=== PATIENT | female | born 1960 | race Caucasian/White ===

== ENCOUNTER 2016-08-16 17:21 | Emergency (ER) | payer BC ==
[2016-08-16 17:29] VITALS: BP 122/81
--- NOTE | 2016-08-16 17:35 | UC ---
Complaint Female HPI - HPI Summary HPI Summary: 56 YEAR OLD FEMALE PRESENTS WITH COMPLAINS OF DYSURIA, URINE FREQUENCY, AND URGENCY. - History Of Current Complaint Chief Complaint: UCGU Stated Complaint: URINARY Time Seen by Provider: 08/16/16 17:33 Hx Last Menstrual Period: 08/08/16 - Allergies/Home Medications Allergies/Adverse Reactions: Allergies Allergy/AdvReac Type Severity Reaction Status Date / Time No Known Allergies Allergy Verified 08/16/16 17:29 Home Medications: Home Medications Cholecalciferol [Vitamin D] 1,000 unit PO DAILY 08/16/16 [History Confirmed 06/28] PMH/Surg Hx/FS Hx/Imm Hx - Surgical History Surgical History: Yes Surgery Procedure, Year, and Place: Herniated disc repair 2001 - Social History Alcohol Use: Occasionally Substance Use Type: None Smoking Status (MU): Never Smoked Tobacco Review of Systems Constitutional: Negative Skin: Negative Eyes: Negative ENT: Negative Respiratory: Negative Cardiovascular: Negative Gastrointestinal: Negative Genitourinary: Dysuria, Frequency, Urgency Motor: Negative Neurovascular: Negative Musculoskeletal: Negative Neurological: Negative Psychological: Negative All Other Systems Reviewed And Are Negative: Yes Physical Exam Triage Information Reviewed: Yes Vital Signs: Initial Vital Signs Temp 37.9 C 08/16/16 17:25 Pulse 85 08/16/16 17:25 Resp 14 08/16/16 17:25 BP 122/81 08/16/16 17:25 Pulse Ox 98 08/16/16 17:25 Eye Exam: Normal ENT Exam: Normal Dental Exam: Normal Neck exam: Normal Neck: Positive: 1 Respiratory Exam: Normal Cardiovascular Exam: Normal Abdominal Exam: Normal Musculoskeletal Exam: Normal Neurological Exam: Normal Psychological Exam: Normal Skin Exam: Normal Complaint Female Dx - Differential Dx/Diagnosis Provider Diagnoses: UTI Discharge - Discharge Plan Condition: Stable Disposition: HOME Prescriptions: Nitrofurantoin Monohyd Macro [Macrobid] 100 mg PO BID #14 cap Patient Education Materials: Urinary Tract Infection in Women (ED) Referrals: Bety Bolivar MD [Primary Care Provider] -
--- NOTE | 2016-08-19 07:47 | UC ---
Progress - Progress Note Progress Note: urine cx is neg. she should stop the nitrofurantoin
== END 2016-08-16 17:52 | disposition home or self-care (01) ==
LOC: UCCORT 17:21
DX: N39.0 Urinary tract infection, site not specified (principal)
CPT/HCPCS: 81003; 87086; 99212; G0463

== ENCOUNTER 2018-04-15 12:58 | Day surgery (SDC) | payer BC ==
--- NOTE | 2018-04-15 10:27 | HP ---
PREOPERATIVE HISTORY AND PHYSICAL: DATE OF ADMISSION/SURGERY: 04/15/18 DATE OF OFFICE VISIT/ENCOUNTER: 04/15/18 ATTENDING SURGEON: Lynsey Del Toro MD.* (DICTATED BY ERIK SY) PROCEDURE: Right small finger incision and drainage. CHIEF COMPLAINT: Postoperative infection, right small finger. HISTORY OF PRESENT ILLNESS: This is a 58-year-old female who underwent a right small finger DIP joint fusion with Dr. Del Toro on 03/22/18. Postoperatively initially she was doing well; however, after about 10 days after surgery, she noticed an increase in swelling, pain and erythema on the pad of the finger. Despite treatment with warm soapy water soaks twice daily and antibiotics, the symptoms have persisted. The patient has been noticing some light serous drainage from around the nail bed. After examination by Dr. Del Toro, she has consented to proceed with surgical intervention for the finger in the form of an incision and drainage. Otherwise, she has been feeling well and has been afebrile. PAST MEDICAL HISTORY: 1. Hypercholesterolemia. 2. GERD. PAST SURGICAL HISTORY: 1. Right small finger DIP joint fusion. 2. LEEP. 3. Anterior cervical diskectomy, fusion. 4. Tubal ligation. 5. Hand surgery involving the right pinky in the past. MEDICATIONS: 1. Atorvastatin calcium 10 mg daily. 2. CoQ10 maximum strength 400 mg daily. 3. Pantoprazole 40 mg daily. 4. Tums 500 mg 1 to 2 tabs p.r.n. 5. Vitamin D3 1000 units twice daily. 6. Ciprofloxacin 500 mg b.i.d. for current infection. ALLERGIES: No known drug allergies. FAMILY MEDICAL HISTORY: Uterine cancer, hypertension, stroke. 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 She denies tobacco use and recreational drug use. She drinks alcohol on occasion. REVIEW OF SYSTEMS: Negative for general, cephalic, cardiovascular, respiratory , GI, , other musculoskeletal, integumentary, endocrine, neurologic, and hematologic symptoms. Infectious disease is negative for history of MRSA, hepatitis C, HIV. PHYSICAL EXAMINATION GENERAL: Well-developed, well-nourished, 58-year-old female, in no acute distress. VITAL SIGNS: Height 5 feet 4 inches, weight 150 pounds. Pulse rate 62, blood pressure 108/70. HEENT: Normocephalic, atraumatic. Pupils are equal, round, and reactive to light and accommodation. Extraocular movements are intact. Throat is clear. NECK: Supple. No palpable lymph nodes. PULMONARY: Lungs are clear to auscultation bilaterally. No wheezes, rales, or rhonchi. CARDIOVASCULAR: Regular rate and rhythm. S1, S2. No murmurs, rubs, or gallops. No edema. ABDOMEN: Positive bowel sounds, soft, nontender. NEUROLOGICAL: Alert and oriented x3. Cranial nerves II through XII are intact. Sensation is intact to light touch. MUSCULOSKELETAL: On exam of her right pinky finger, there is some light erythema more on the pad of her finger than around the surgical incision. It is mildly swollen and tender to palpation. There is some light drainage. Nail is intact. IMPRESSION: Postoperative infection, right little finger after distal interphalangeal joint fusion. PLAN: The patient is scheduled to undergo a right small finger I and D with Dr. Del Toro on 04/15/18. We will see her back in the office later this week for followup. She will use [facility] for postoperative pain management and continue on the ciprofloxacin. Cultures are pending. ERIK SY [id number]/[facility] #: [id number] MTDClementine
[2018-04-15] MEDS ORDERED: Lidocaine 1% INJ* 10 MG/ML 30 ML SDV ONE (13:03)
[2018-04-15 14:34] VITALS: BP 116/66
--- NOTE | 2018-04-15 20:32 | OP ---
DATE OF OPERATION: 04/15/18 [facility] DATE OF : 62. SURGEON: Lynsey Del Toro MD SUPERVISOR [employer] PRODUCTION: ERIK [place] ANESTHESIA: Local. PRE-OP DIAGNOSIS: Postop wound infection with a paronychia of the right small finger. POST-OP DIAGNOSIS: Postop wound infection with a paronychia of the right small finger. OPERATIVE PROCEDURE: I and D of the right small finger. ESTIMATED BLOOD LOSS: Zero. INDICATION FOR PROCEDURE: Joyce is a 58-year-old female who had a DIP joint fusion of her right small finger about 2-1/2 weeks ago. Few days ago, she developed redness and swelling. She has failed conservative treatment with oral antibiotics. She has been on Keflex and Cipro. She had, in the office, an incision and drainage yesterday, but has persistent drainage, so presents now for operative I and D of the right small finger. DESCRIPTION OF PROCEDURE: The patient was brought to the operative room, was given a digital block anesthetic with 10 cc of 1% plain lidocaine. The skin of her right small finger and upper extremity was prepped and draped in the usual sterile fashion. No tourniquet was used. A tenotomy scissor was used to open up the distal incision and on the lateral aspect of the fingernail. The drainage was cultured with aerobic and anaerobic cultures. We then flushed the wound with a liter of saline with a 10 cc syringe. The fluid did not track at all proximal to the DIP joint and there is no dehiscence of the operative incision. The wound was dressed with Xeroform, 4x4, Kerlix, and Coban. The patient tolerated the procedure well and was brought to the recovery room in good condition. [id number]/[facility] #: [id number] [facility] SHOREClementine
== END 2018-04-15 14:38 | disposition home or self-care (01) ==
LOC: OREAST 12:58
PROVIDERS: ATTEND Orthopaedic Surgery
DX: T81.40XA Infection following a procedure, unspecified, initial encounter (principal); E78.00 Pure hypercholesterolemia, unspecified; K21.9 Gastro-esophageal reflux disease without esophagitis
CPT/HCPCS: 87070; 87073; 87076; 87077; 87205